=== PATIENT | female | born 1950 | race Caucasian/White ===

== ENCOUNTER 2021-06-23 10:57 | Emergency (ER) | payer OTHER, SELFPAY ==
[~2021-06-23] VITALS: Ht 162.6 cm; Wt 68.0 kg
[~2021-06-23 10:57] MED LIST: ECO325 PO; LIP40 PO
[2021-06-23 11:27] VITALS: BP_SYST 150
[2021-06-23] MEDS ORDERED: ACETAMINOPHEN 325 MG TABLET PO ONE (12:15)
[2021-06-23] MEDS ORDERED: HYDROcodone/ACETAMIN 5-325 MG TAB (NORCO/ VICODIN) PO ONE (13:00)
[2021-06-23 15:10] VITALS: BP_SYST 148
== END 2021-06-23 15:12 | disposition home or self-care (01) ==
LOC: SED 10:57
DX: S39.012A Strain of muscle, fascia and tendon of lower back, initial encounter (principal); I10 Essential (primary) hypertension; Z79.899 Other long term (current) drug therapy; W18.39XA Other fall on same level, initial encounter; Y93.89 Activity, other specified; Y92.89 Other specified places as the place of occurrence of the external cause; Y99.8 Other external cause status
CPT/HCPCS: 72131; 76376; 99284